=== PATIENT | male | born 1990 | race Caucasian/White ===

== ENCOUNTER 2021-05-16 11:19 | Emergency (ER) | payer OTHER ==
[~2021-05-16 11:19] MED LIST: IBUPROFEN600 MG PO; ZITHROMAX500 MG PO; ZOFRAN4 MG PO
[2021-05-16 12:25] LABS: HEMOGLOBIN 15.1 gm/dl (14.0-17.5); WHITE BLOOD COUNT 10.1 K/UL (4.5-11.0)
[2021-05-16 12:46] LABS: BUN/CREATININE RATIO 16 (0-10)
[2021-05-16] MEDS ORDERED: ZOFRAN4 MG PO (15:15)
== END 2021-05-16 13:09 | disposition home or self-care (01) ==
LOC: ER1 11:19
PROVIDERS: Physician Assistant
DX: R10.11 Right upper quadrant pain (principal); R10.12 Left upper quadrant pain; F17.200 Nicotine dependence, unspecified, uncomplicated; Z88.0 Allergy status to penicillin
CPT/HCPCS: 80053; 82150; 83690; 85025; 99284; Q9967

== ENCOUNTER 2021-05-16 13:56 | Emergency (ER) | payer OTHER ==
[2021-05-16] MEDS ORDERED: ZOFRAN4 MG PO (15:15)
== END 2021-05-16 15:53 | disposition home or self-care (01) ==
LOC: ER1 13:56
DX: R10.13 Epigastric pain (principal); R11.2 Nausea with vomiting, unspecified; F17.200 Nicotine dependence, unspecified, uncomplicated; Z88.0 Allergy status to penicillin
CPT/HCPCS: 99284

== ENCOUNTER 2022-03-05 15:43 | Emergency (ER) | payer OTHER | END 2022-03-05 15:55 | disposition left against medical advice (07) | LOC: ER1 15:43 | DX: Z53.21 Procedure and treatment not carried out due to patient leaving prior to being seen by health care provider (principal) ==